=== PATIENT | male | born 1970 | race Caucasian/White ===

== ENCOUNTER 2018-10-05 06:39 | Day surgery (SDC) | payer OTHER ==
[2018-10-05 07:02] VITALS: BMI 26.6
--- NOTE | 2018-10-05 08:08 | CP.SDSHP ---
Same Day Surgery H & P - History Proposed Procedure: EGD Pre-Op Diagnosis: SEE NOTES - Previous Medical/Surgical History Cardiac: Hypertension Endocrine/Metabolic: Diabetes, Other Misc: Other Pain: 4.Moderate Pain - Allergies Allergies: Allergies No Known Allergies Allergy (Verified 10/05/18 06:57) - Physical Exam General Appearance: N Vital Signs: Vital Signs 10/05/18 07:01 Temperature 98.6 F Pulse Rate 80 Respiratory 20 Rate Blood Pressure 141/69 O2 Sat by Pulse 98 Oximetry Mental Status: Alert & Oriented x3 Neuro: WNL Heart: Other Lungs: WNL GI: Other - {Optional Preform as Required} Breast: WNL Abdomen: Other Rectal: Other Integument: WNL : WNL Ortho: WNL ENT: WNL - Impression Pt. Evaluated Today:Candidate for Anesthesia & Procedure: Yes - Date & Time Time: 08:08 Short Stay Discharge - Short Stay Discharge Admitting Diagnosis/Reason for Visit: MELENA Disposition: HOME/ ROUTINE
[2018-10-05] MEDS ORDERED: Lactated Ringer's 500 ML IV ONE (08:21)
[2018-10-05] MEDS ORDERED: Propofol 10 mg/ml Inj (20 ML) ONE (08:25)
[2018-10-05] MEDS ORDERED: Lidocaine Hydrochloride 5 ML INJ ONE (08:29)
[2018-10-05] MEDS ORDERED: Belladonna-Phenobarbital PO ONE (08:30)
[2018-10-05] MEDS ORDERED: Pantoprazole 40 mg EC Tab PO ONE (08:45)
[2018-10-05 08:47] VITALS: TEMP 99
[2018-10-05] MEDS ORDERED: Bisacodyl 5mg EC Tab PO ONE (09:15)
[2018-10-05 10:14] VITALS: BP 115/72; PULSE 95; RESP 20; O2SAT 99
== END 2018-10-05 10:15 | disposition home or self-care (01) ==
LOC: C.ENDO 06:39
PROVIDERS: ATTEND Specialist
DX: K92.1 Melena (principal); K21.0 Gastro-esophageal reflux disease with esophagitis; K44.9 Diaphragmatic hernia without obstruction or gangrene; T18.2XXA Foreign body in stomach, initial encounter; K30 Functional dyspepsia; I10 Essential (primary) hypertension; E11.9 Type 2 diabetes mellitus without complications; Z79.84 Long term (current) use of oral hypoglycemic drugs
CPT/HCPCS: 43235; 82948; J2704; J2765; J7120